=== PATIENT | male | born 1995 | race Two or more races ===

== ENCOUNTER 2020-01-26 16:37 | Emergency (ER) | payer OTHER ==
[~2020-01-26] VITALS: Ht 170.2 cm; Wt 77.2 kg
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
[2020-01-26] MEDS: IOHEXOL 300 MG/ML 75 ML VIAL. IV ONE (17:41)
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
[2020-01-26] MEDS: KETOROLAC 30 MG/ML VIAL. IVP ONE (19:00)
[2020-01-26] MEDS: HYDROcodone/APAP 5/325MG 1 TAB TABLET PO ONE (19:40)
[2020-01-26 19:42] LABS: BASO # 0.1 x10^3/uL (0.0-0.2); BASO % 1 % (0-3); EOS % 0 % (0-3); HEMATOCRIT 44.1 % (39.0-53.0); HEMOGLOBIN 14.5 g/dL (13.0-17.5); LYMPH # 2.5 x10^3/uL (1.0-4.8); LYMPH % 21 % (24-48); MEAN CORPUSCULAR HEMOGLOBIN 29 pg (25-35); MEAN CORPUSCULAR HGB CONC 33 g/dL (31-37); MEAN CORPUSCULAR VOLUME 88 fL (79-100); MONO # 1.6 x10^3/uL (0.0-1.1); MONO % 14 % (0-9); NEUT # 7.4 x10^3uL (1.8-7.7); NEUT % 64 % (31-73); PLATELET COUNT 291 x10^3/uL (140-400); RED BLOOD COUNT 5.04 x10^6/uL (4.30-5.70); RED CELL DISTRIBUTION WIDTH 13.6 % (11.5-14.5); WHITE BLOOD COUNT 11.6 x10^3/uL (4.0-11.0)
[2020-01-26 19:48] LABS: CALCIUM 9.3 mg/dL (8.5-10.1); CREATININE 1.2 mg/dL (0.7-1.3); GFR 74.4; POTASSIUM 3.7 mmol/L (3.5-5.1)
[2020-01-26 19:54] LABS: ALBUMIN 4.5 g/dL (3.4-5.0); ALBUMIN/GLOBULIN RATIO 1.4 (1.0-1.7); TOTAL PROTEIN 7.8 g/dL (6.4-8.2)
[2020-01-26] MEDS ORDERED: CYCL-331 PO (20:13)
[2020-01-26] MEDS ORDERED: IBUP-571 PO (20:13)
[2020-01-26 20:28] VITALS: BP 125/85
== END 2020-01-26 20:29 | disposition home or self-care (01) ==
LOC: ER 16:37
DX: S20.211A Contusion of right front wall of thorax, initial encounter (principal); S20.221A Contusion of right back wall of thorax, initial encounter; F10.10 Alcohol abuse, uncomplicated; M54.2 Cervicalgia; M25.511 Pain in right shoulder; Y90.9 Presence of alcohol in blood, level not specified; V89.2XXA Person injured in unspecified motor-vehicle accident, traffic, initial encounter; Y93.89 Activity, other specified; Y92.89 Other specified places as the place of occurrence of the external cause; Y99.8 Other external cause status
CPT/HCPCS: 36415; 70450; 71260; 72125; 80053; 85025; 96374; 99285; J1885; Q9967